=== PATIENT | female | born 1955 | race Caucasian/White ===

== ENCOUNTER 2016-08-10 10:54 | Outpatient (RCR) | payer BC | END 2016-09-05 | LOC: M PT 10:54 | PROVIDERS: ATTEND Orthopaedic Surgery | DX: Z51.89 Encounter for other specified aftercare (principal) ==

== ENCOUNTER → 2016-12-11 | Outpatient (CLI) | payer BC ==
--- NOTE | 2016-12-12 10:34 | REP ---
MRI LEFT ELBOW: TECHNIQUE: Multiple sequences obtained in the axial, coronal and sagittal planes. The medial and lateral collateral ligaments appear intact. The common flexor and extensor tendons appear intact with no evidence of a tear. Biceps, brachialis, brachial radialis and triceps appear intact with no signal abnormality. There is a small joint effusion. No ganglion cyst is seen. The ulnar nerve appears somewhat thickened with increased signal as it courses through the cubital tunnel suggesting some degree of ulnar neuritis. Bone marrow signal is homogeneous and unremarkable. There is no occult fracture. IMPRESSION: Findings suggesting ulnar neuritis. Ulnar nerve appears thickened with increased signal as it courses through the cubital tunnel. There is a small joint effusion. No evidence of tendon or ligament tear. No occult fracture. Signed by Devin Ramos MD 12/12/2016 04:07 P
== END ==
LOC: M RAD 18:36
PROVIDERS: ATTEND Orthopaedic Surgery
DX: S52.572D Other intraarticular fracture of lower end of left radius, subsequent encounter for closed fracture with routine healing (principal); S52.125D Nondisplaced fracture of head of left radius, subsequent encounter for closed fracture with routine healing; W18.30XD Fall on same level, unspecified, subsequent encounter; Y92.009 Unspecified place in unspecified non-institutional (private) residence as the place of occurrence of the external cause

== ENCOUNTER 2017-03-21 11:58 | Emergency (ER) | payer OTHER, BC ==
[~2017-03-21] VITALS: Ht 160 cm; Wt 72.0 kg
[2017-03-21 12:46] LABS: BASO % 0.6 % (0.0-1.0); EOS # 0.2 K/mm3 (0.0-0.50); EOS % 4.5 % (0.0-3.0); LARGE UNSTAINED CELL # 0.1 K/mm3 (0.0-0.4); LARGE UNSTAINED CELL % 1.4 % (0.0-4.0); LYMPH # 1.9 K/mm3 (1.5-4.5); MEAN CORPUSCULAR HGB CONC 34.6 g/dl (32.0-36.5); MEAN CORPUSCULAR VOLUME 89.4 fl (80.0-96.0); MONO # 0.3 K/mm3 (0.0-0.8); MONO % 4.8 % (0.0-5.0); NEUTROPHILS # 3.1 K/mm3 (1.8-7.7); NEUTROPHILS % 56.7 % (36.0-66.0); PLATELET COUNT, AUTOMATED 245 k/mm3 (150-450); RED CELL DISTRIBUTION WIDTH 12.6 % (11.5-14.5); WHITE BLOOD COUNT 5.5 K/mm3 (4.0-10.0)
[2017-03-21 13:08] LABS: INR 0.9
[2017-03-21 13:12] LABS: ALBUMIN 3.8 GM/DL (3.2-5.2); ALBUMIN/GLOBULIN RATIO 1.19 (1.00-1.93); ALKALINE PHOSPHATASE 64 U/L (45-117); ALT/SGPT 23 U/L (12-78); ANION GAP 7 MEQ/L (8-16); AST/SGOT 16 U/L (15-37); BILIRUBIN,DIRECT < 0.1 MG/DL (0.0-0.2); BILIRUBIN,TOTAL 0.3 MG/DL (0.2-1.0); BLOOD UREA NITROGEN 13 MG/DL (7-18); CALCIUM LEVEL 9.1 MG/DL (8.8-10.2); CARBON DIOXIDE LEVEL 30 MEQ/L (21-32); CHLORIDE LEVEL 106 MEQ/L (98-107); CREATININE FOR GFR 0.83 MG/DL (0.55-1.02); GLOMERULAR FILTRATION RATE > 60.0 (>45); GLUCOSE, FASTING 119 MG/DL (80-110); POTASSIUM SERUM 3.6 MEQ/L (3.5-5.1); SODIUM LEVEL 143 MEQ/L (136-145)
[2017-03-21] MEDS ORDERED: ISOVUE-370 76% 100ML VIAL (Q9967) As Ordered ONE (13:21)
--- NOTE | 2017-03-21 13:41 | REP ---
Head CT without contrast: History: Trauma. Comparison study: No comparison. CT findings: Bone window settings demonstrate an intact bony calvarium. There is no evidence of skull fracture or incidental bony calvarial lesion. There is a 13 mm mucous retention cyst in the right posterior ethmoid sinus. The visualized paranasal sinuses appear otherwise clear. No intraorbital abnormality is seen. On soft tissue window setting images; the lateral, third, and fourth ventricles are normal in size and position. Ramos-white differentiation pattern is normal above and below the tentorium. There are is no evidence of intracranial hemorrhage. No mass, edema, infarction, or midline shift is seen. No extra-axial fluid collection is appreciated. Impression: 1.3 cm mucous retention cyst right ethmoid sinus. Otherwise negative noncontrast head CT. Signed by Mingo Santillan MD 03/21/2017 01:33 P
--- NOTE | 2017-03-21 13:50 | REP ---
CT STUDY OF THE CERVICAL SPINE WITHOUT CONTRAST: HISTORY: Trauma. No comparison study. TECHNIQUE: Helical scanning is acquired and overlapping 2 mm high resolution axial images were generated and reviewed at bone and soft tissue window settings. Coronal and sagittal multiplanar re-formations images are generated. CT FINDINGS: There is no evidence of cervical spine element fracture. No skull base fracture is seen. Cervical vertebral body heights are preserved. Alignment is normal. Facet joints are normally aligned bilaterally at each cervical level on multiplanar re-formations images. There is no evidence of intraspinal or paraspinal hematoma. No extra vertebral abnormality is seen. There is degenerative disc spurring and disc space narrowing at C3-4 through C6-7 consistent with degenerative spondylosis. Minimal osteoarthritic facet changes are seen. IMPRESSION: Mild degenerative disc disease changes, otherwise negative CT study of the cervical spine without contrast. No fracture seen. Signed by Mingo Santillan MD 03/21/2017 03:57 P
--- NOTE | 2017-03-21 14:21 | REP ---
CT CHEST WITH IV CONTRAST: TECHNIQUE: Axial contrast enhanced images from the thoracic inlet to the upper abdomen using 100 mL Isovue 370 intravenous contrast material with multiplanar reformations. There is mild bibasilar fibroatelectatic change. No pneumothorax or other parenchymal abnormality is seen. There is no thoracic aortic aneurysm or dissection. Heart is normal in size. There is no pleural or pericardial effusion. There is no mediastinal or hilar adenopathy. The visualized osseous structures appear intact. Metallic clips are seen in the right upper quadrant. There appears to be a gallstone in the gallbladder. There is a small hiatal hernia. IMPRESSION: No acute abnormalities as discussed above. Signed by Devin Ramos MD 03/21/2017 05:12 P
[2017-03-21] MEDS ORDERED: SKEL800T97 PO (14:23)
--- NOTE | 2017-03-21 14:23 | REP ---
CT study of the thoracic spine without contrast: History: Trauma. No comparison study. Technique: Helical scanning is acquired and 4 mm axial images are reformatted. Coronal and sagittal multiplanar re-formation images are generated and reviewed. CT findings: There is degenerative disc disease at C7-T1 with disc space narrowing and anterior posterior osteophyte formation. Thoracic vertebral body heights are preserved. No fracture or collapse is seen. Pedicles and posterior elements are intact. No neural foraminal lesion is seen. No malalignment is noted. No paravertebral soft-tissue swelling. Incidental note is made of surgical clips in the right suprarenal soft tissues suggesting previous adrenal gland resection. There is a small sliding-type hiatal hernia. The adjacent lung parenchyma is unremarkable. Impression: Mild degenerative changes. No traumatic abnormality seen. Signed by Mingo Santillan MD 03/21/2017 03:57 P
[2017-03-21 14:57] VITALS: BP 102/68
--- NOTE | 2017-03-23 08:24 | ECGEPIP ---
Stationary ECG Study [facility] - ED Test Date: 2017-03-21 Pat Name: DAMASO HUANG Department: Room: - Gender: F [employer]: : [id number] Requested By: Kvng Haywood Order Number: [id number] Reading MD: Filomena Simons Measurements Intervals [place] Rate: 86 P: 33 NV: 194 QRS: -3 QRSD: 87 T: 19 QT: 366 QTc: 439 Interpretive Statements SINUS RHYTHM INFERIOR MYOCARDIAL INFARCTION, PROBABLY OLD NSTTW ABNORMALITY NO PRIOR FOR COMPARISON Electronically Signed On 03-23-2017 8:23:48 EDT by Filomena Simons
== END 2017-03-21 14:58 | disposition home or self-care (01) ==
LOC: M ED 11:58 → EEVIPCON 11:58 → M ED 14:58
DX: S39.012A Strain of muscle, fascia and tendon of lower back, initial encounter (principal); S16.1XXA Strain of muscle, fascia and tendon at neck level, initial encounter; S29.001A Unspecified injury of muscle and tendon of front wall of thorax, initial encounter; T14.8 Other injury of unspecified body region; M51.84 Other intervertebral disc disorders, thoracic region; M50.93 Cervical disc disorder, unspecified, cervicothoracic region; V49.9XXA Car occupant (driver) (passenger) injured in unspecified traffic accident, initial encounter; Y92.9 Unspecified place or not applicable; Y93.9 Activity, unspecified; Y99.9 Unspecified external cause status; R94.31 Abnormal electrocardiogram [ECG] [EKG]; J34.1 Cyst and mucocele of nose and nasal sinus; Z87.891 Personal history of nicotine dependence
CPT/HCPCS: 36415; 70450; 71260; 72125; 72128; 80048; 80076; 82550; 82553; 85025; 85610; 85730; 93005; 93041; 94760; 99285; Q9967